=== PATIENT | female | born 1990 | race Caucasian/White ===

== ENCOUNTER 2019-11-05 07:04 | Outpatient (CLI) | payer BC, SELFPAY ==
[2019-11-05 07:52] LABS: Hematocrit 39.9 % (37.0-47.0); Hemoglobin 13.1 g/dL (12.0-15.0)
== END 2019-11-05 07:05 | disposition home or self-care (01) ==
LOC: ANHLAB 07:08
PROVIDERS: Visit Provider Obstetrics & Gynecology
DX: Z01.818 Encounter for other preprocedural examination (principal); N92.6 Irregular menstruation, unspecified
CPT/HCPCS: 36415; 85014; 85018

== ENCOUNTER 2019-11-11 00:07 | Outpatient (CLI) | payer BC, SELFPAY ==
[2019-11-11 19:22] LABS: SARS-CoV-2 RNA PCR Negative
== END 2019-11-11 00:08 | disposition home or self-care (01) ==
LOC: ANHCOVIDDT 00:07
PROVIDERS: Visit Provider Obstetrics & Gynecology
DX: Z01.818 Encounter for other preprocedural examination (principal); Z11.59 Encounter for screening for other viral diseases
CPT/HCPCS: 87635; C9803; U0003

== ENCOUNTER 2019-11-14 01:57 | Day surgery (SDC) | payer BC, SELFPAY ==
[2019-11-03 15:37] VITALS: BMI 30.9
--- NOTE | 2019-11-09 08:04 | P.HP_ITS ---
H&P: HPI History of Present Illness Chief complaint: Irregular Bleeding Narrative: Chava Ochoa is a 29 year old female is admitted for hysteroscopy dilatation curettage. She has been bleeding for 2 and half months with continuous spotting bleeding. She had negative STD testing and hormones have been unsuccessful. Risks and benefits were reviewed in great detail. She read the [employer] handout entitled hysteroscopy, and dilatation curettage respectively. She had all questions answered. She asked to proceed Review of Systems Review of Systems: All systems reviewed & are unremarkable except as noted in HPI and below PMFSH Social History Social History Years smoked: 4 Smoking status: Former smoker Tobacco type: cigarettes Additional smoking assessment comments: QUIT 09/2019 Alcohol intake: current Drinks per week: 1 Spiritual care concerns: No Meds Home Medications and Allergies Home Medications Medication Instructions Recorded Confirmed Type naproxen sodium [Aleve] 220 mg PO DIRECTED PRN 11/03/19 11/03/19 History Allergies Allergy/AdvReac Type Severity Reaction Status Date / Time penicillin G Allergy Severe DIFFICULTY Verified 11/03/19 15:39 BREATHING, TONGUE SWELLING SHELLFISH Allergy Unknown HIVES, Uncoded 11/03/19 15:39 ITCHING Exam Const: General: no acute distress Eyes: General: appearance normal, both eyes and all related structures Neck: Neck: supple and no JVD Thyroid: thyroid normal Resp: Effort & Inspection: normal respiratory effort Auscultation: clear to auscultation bilaterally Cardio: Rate: regular rate Rhythm: regular rhythm GI: Inspection: non-distended GI Palp: Yes Soft to palpation, No Tenderness to palpation present (GI) and No Guarding due to palpation present (GI) A uscultation: normal bowel sounds : General: Yes bladder normal to palpation External Female Exam: normal external appearance Speculum Exam - Vagina: normal vaginal discharge and No vaginal bleeding Speculum Exam - Cervix: nontender Bimanual exam- vagina & uterus: bladder normal to palpation and No Cervical tenderness present OB/external & speculum: No vaginal bleeding Skin: General skin exam: no rashes or lesions noted Extrem: General: normal to inspection and no edema Psych: Mental Status: mental status grossly normal Affect: normal affect Assessment and Plan Additional Plan impression: Bleeding refractory to medical therapy Plan: Hysteroscopy, dilatation curettage
--- NOTE | 2019-11-14 06:38 | WPDHPUPDATE1 ---
History and Physical Update Update Date/Time: 11/14/19 06:38 History and Physical has been reviewed, including an updated exam of the patient. There are NO changes in the patient's condition. Risks, benefits, and alternatives have been discussed and questions answered. Patient agrees to proceed with procedure.
--- NOTE | 2019-11-14 06:39 | WPDHPUPDATE1 ---
History and Physical Update Update Date/Time: 11/14/19 06:39 History and Physical has been reviewed, including an updated exam of the patient. There are NO changes in the patient's condition. Risks, benefits, and alternatives have been discussed and questions answered. Patient agrees to proceed with procedure.
[2019-11-14 07:10] VITALS: BP 115/66; PULSE 70; RESP 20; TEMP 36.2; O2SAT 100
--- NOTE | 2019-11-14 07:20 | P.PNAN_ITS ---
Anes - Initial Pre Proc Eval Procedure: Operation Date: 11/14/19 09:00 Proposed Procedures p Hysteroscopy, Dilation and Curettage - Hood Franks MD Date/Time: 11/14/19 07:20 Surgeon: Hood Franks MD Pre Op Diagnosis: Irregular Bleeding Patient Data Age: 29 Gender: F Height: 1.63 m Weight: 81.65 kg Allergies Allergy/AdvReac Type Severity Reaction Status Date / Time penicillin G Allergy Severe DIFFICULTY Verified 11/03/19 15:39 BREATHING, TONGUE SWELLING SHELLFISH Allergy Unknown HIVES, Uncoded 11/03/19 15:39 ITCHING Home Medications Medication Instructions Recorded Confirmed Type naproxen sodium [Aleve] 220 mg PO DIRECTED PRN 11/03/19 11/03/19 History hydrocodone-acetaminophen [[place]] 1 tablet PO Q4H PRN #20 tablet 11/14/19 Rx Patient hx anesthesia problems: none Family hx anesthesia problems: none PMFSH Past Medical History Medical History (Updated 11/14/19 @ 07:22 by Gregorio Ambriz MD) Anemia Asthma IBS (irritable bowel syndrome) Obesity Social History Social History Years smoked: 4 Smoking status: Former smoker Tobacco type: cigarettes Additional smoking assessment comments: QUIT 09/2019 Alcohol intake: current Drinks per week: 1 Spiritual care concerns: No Anes - Eval Final PreProcedure Day of Procedure 11/14/19 07:20 Patient weight: obese Heart: regular rate and rhythm Lungs: clear to auscultation and normal air movement Airway: Mallampati scale class II Neurological: alert and oriented Last oral intake: >/= 8 hours ASA classification: II Emergent: no Anesthetic plan: proceed Anesthesia type and monitoring: general GIVS and LMA Informed Consent: The patient's anesthetic plan and its attendant risks and benefits were discussed with the patient/family/POA. Questions were solicited and answers provided to the satisfaction of the patient/family/POA.
[2019-11-14] MEDS: ACETAMINOPHEN 500 MG TABLET 1000 MG PO (07:45)
--- NOTE | 2019-11-14 09:03 | PM.PROC ---
Procedure Note - Detailed Date of procedure: 11/14/19 Pre-op diagnosis: Irregular Bleeding Surgeon: Hood Franks MD Postop diagnosis: Irregular bleeding Procedure: Hysteroscopy/dilatation and curettage EBL: 5Cc Anesthesia: IV sedation and local Complications: None Findings: Uterus is sounded to 8cm. Thick irregular endometrial tissue. Normal-appearing fallopian os T bilaterally Description of procedure: The patient was prepped and draped in the normal sterile fashion and placed in the dorsal lithotomy position. Under excellent IV sedation weighted speculum was placed in posterior fornix of vagina. Anterior lip of the cervix was grasped with a single-tooth tenaculum and 2.5cc of 1% xylocaine anesthesia placed at 2, 4, 8, 10:00 a.m. in the cervix. Uterus sounded 8cm. Serial dilatation with fragmented dilators performed. This was followed by passage of the 5mm visualizing hysteroscope using normal saline as visualizing medium. Clots and irregular tissue were seen but no evidence of polyp or other pathologic findings. The uterus was scraped over the entire 360? until a good grating sound was heard. The instruments removed all were accounted for. All sponge, needle, instrument counts were correct. Patient was awakened and went to recovery in satisfactory condition. There were no immediate complications
[2019-11-14] MEDS: LACTATED RINGERS 1,000 ML 30 ML IV CONT (09:06)
[2019-11-14 09:10] VITALS: BP 110/60; PULSE 61; RESP 10; O2SAT 94
[2019-11-14 09:30] VITALS: BP 125/70; PULSE 60; RESP 12; O2SAT 99
== END 2019-11-14 10:20 | disposition home or self-care (01) ==
PROVIDERS: Visit Provider Obstetrics & Gynecology
PROC: 0U5B8ZZ Destruction of Endometrium, Via Natural or Artificial Opening Endoscopic (ICD-10-PCS; CPT 58563; principal; 2019-11-14 09:00)
DX: N92.6 Irregular menstruation, unspecified (principal); N85.8 Other specified noninflammatory disorders of uterus; D64.9 Anemia, unspecified; E66.9 Obesity, unspecified; Z68.30 Body mass index [BMI] 30.0-30.9, adult; J45.909 Unspecified asthma, uncomplicated; Z87.891 Personal history of nicotine dependence; Z88.0 Allergy status to penicillin; Z79.891 Long term (current) use of opiate analgesic
CPT/HCPCS: 58558; 88305; A9270; J1885; J2250; J2704; J3010; J7030; J7120

== ENCOUNTER 2021-09-05 18:45 | Emergency (ER) | payer BC, SELFPAY ==
--- NOTE | 2021-09-05 18:50 | ED.EAR ---
HPI - Ear Problem General Chief complaint: Ear Stated complaint: Bilateral Ear Irritation Time Seen by Provider: 09/05/21 18:50 Source: patient, RN notes reviewed and old records reviewed Mode of arrival: ambulatory Limitations: no limitations History of Present Illness HPI Narrative: 31-year-old female presents to [facility] with complaints of bilateral ear pain, tinnitus, decreased hearing since Thursday. Thursday she had 101 fever, no fever since. Denies any chest pain or shortness of breath. MD Complaint: ear pain Severity: mild Discharge from ear: Reports no Associated symptoms ear: decreased hearing and tinnitus Related Data Home Medications Medication Instructions Recorded Confirmed cetirizine [Zyrtec] 10 mg PO DAILY 09/05/21 09/05/21 levonorgestrel [Mirena] See Rx Instructions .ROUTE .COMPLEX 09/05/21 09/05/21 Allergies Allergy/AdvReac Type Severity Reaction Status Date / Time iodine Allergy Severe Hives Verified 09/05/21 18:49 penicillin G Allergy Severe DIFFICULTY Verified 09/05/21 18:49 BREATHING, TONGUE SWELLING Review of Systems Review of Systems: All systems reviewed & are unremarkable except as noted in HPI and below Constitutional: Constitutional: Reports no additional constitutional complaints, Denies chills and Denies fever(s) Eyes: Eyes: Reports no additional eye complaints ENT: Reports as per HPI, Denies change in voice, Denies dental pain, Denies vertigo, Denies dizziness, Denies ear discharge, Denies headache(s), Denies throat swelling and Reports other Comments: Ear pain, bilateral, decreased hearing, tinnitus Cardiovascular: Cardiovascular: Reports no additional cardiovascular complaints, Denies chest pain and Denies dyspnea Respiratory: Respiratory: Reports no additional respiratory complaints, Denies cough and Denies dyspnea Gastrointestinal: Gastrointestinal: Reports no additional gastrointestinal complaints, Denies abdominal pain, Denies nausea and Denies vomiting Musculoskeletal: Musculoskeletal: Reports no additional musculoskeletal complaints Integumentary/Breasts: Skin/Breast: Reports system reviewed and no additional complaints, except as docu Neurologic: Reports system reviewed and no additional complaints, except as documented, Denies vertigo and Denies dizziness Psychiatric: Psychiatric: Reports no additional psychiatric complaints Allergic/Immunologic: Allergic/Immunologic: Reports no additional allergic/immunologic complaints and Denies throat swelling PMFSH Past Medical History Medical History (Updated 09/05/21 @ 19:37 by Manasa Garces APRN) Anemia Asthma IBS (irritable bowel syndrome) Obesity Social History Social History Years smoked: 4 Smoking status: Former smoker Tobacco type: cigarettes Additional smoking assessment comments: QUIT 09/2019 Alcohol intake: current Drinks per week: 1 Spiritual care concerns: No Comments At the time of my signature, I reviewed and agree with the nursing past medical, surgical, social, and family history. There is no relevant family history pertinent to the patient complaint. Exam Const: General: healthy appearing and no acute distress Nutritional Appearance: well nourished Orientation/consciousness: patient oriented x3 Limitations: no limitations HENMT: Head: normal to inspection Ears: external ears normal, TM normal on the left, EAC's normal, no periauricular adenopathy and TM abnormal bulging on the right, erythematous on the right and with loss of landmarks on the right General nose exam: Normal external nose present and Normal nasal mucous membranes and turbinates present Face and sinus: normal facial exam Mouth: Yes Normal oral and palatal mucosa present Throat: posterior oropharynx normal, tonsils normal and uvula midline Eyes: Conjunctivae: conjunctivae normal Pupils: Equal, round and reactive pupils present Neck: Neck: normal
[2021-09-05 18:56] VITALS: BP 113/77; PULSE 64; RESP 18; TEMP 36.4; O2SAT 100
== END 2021-09-05 19:07 | disposition home or self-care (01) ==
PROVIDERS: Emergency Provider Nurse Practitioner
DX: H66.91 Otitis media, unspecified, right ear (principal); J45.909 Unspecified asthma, uncomplicated; E66.9 Obesity, unspecified; Z68.27 Body mass index [BMI] 27.0-27.9, adult; Z87.891 Personal history of nicotine dependence
CPT/HCPCS: 99213; G0463

== ENCOUNTER 2021-09-11 17:21 | Emergency (ER) | payer BC, SELFPAY ==
[2021-09-11 17:29] VITALS: BP 129/80; PULSE 72; RESP 18; TEMP 36.4; O2SAT 100
--- NOTE | 2021-09-11 18:23 | ED.EAR ---
HPI - Ear Problem General Chief complaint: Ear Stated complaint: bilateral ear pain Time Seen by Provider: 09/11/21 18:24 Source: patient, RN notes reviewed and old records reviewed Mode of arrival: ambulatory Limitations: no limitations History of Present Illness HPI Narrative: 31-year-old female who presents to [facility] with complaints of bilateral ear pain with inability to hear and feelings of fluid in her ears. Patient states that she was diagnosed with an ear infection last week and started a Z-pack on the 12th and she completed. Patient reports that she feels that her symptoms have worsened. Patient reports that her left ear pain is 4/10, right ear pain 5/10 with pressure and she can't hear.She denies any fevers, chills or sweats or body aches, denies any cough or nasal drainage. MD Complaint: ear pain Location: bilateral Related Data Home Medications Medication Instructions Recorded Confirmed cetirizine [Zyrtec] 10 mg PO DAILY 09/11/21 09/11/21 levonorgestrel [Mirena] 1 device INTRAUTERINE ONCE 09/11/21 09/11/21 Allergies Allergy/AdvReac Type Severity Reaction Status Date / Time iodine Allergy Severe Hives Verified 09/05/21 18:49 penicillin G Allergy Severe DIFFICULTY Verified 09/05/21 18:49 BREATHING, TONGUE SWELLING shellfish derived Allergy Hives Verified 09/11/21 17:50 Review of Systems Review of Systems: CONSTITUTIONAL: Denies fever, chills, or sweats. EYES: Denies visual changes, redness, or discharge. ENT: Denies rhinorrhea, congestion, sore throat,positive for otalgia, decreased hearing bilaterally CARDIOVASCULAR: Denies chest pain, palpitations, or edema. RESPIRATORY: Denies cough or dyspnea. GASTROINTESTINAL: Denies abdominal pain, nausea, vomiting, or diarrhea. GENITOURINARY: Denies dysuria or hematuria. SKIN: Denies rash or itching. MUSCULOSKELETAL: Denies back pain, joint pain, or myalgia. NEUROLOGIC: Denies headache, numbness, or weakness. PSYCHIATRIC: Denies anxiety or depression. All systems reviewed & are unremarkable except as noted in HPI and below PMFSH Past Medical History Medical History (Updated 09/12/21 @ 00:00 by Silvestre Mccarthy) Anemia Asthma IBS (irritable bowel syndrome) Obesity Surgical History Surgical History (Updated 09/12/21 @ 07:48 by Kelsie Delgado NP) History of removal of ovarian cyst Hx of cholecystectomy Previous section Pillow teeth extracted Social History Social History Years smoked: 4 Smoking status: Former smoker Tobacco type: cigarettes Additional smoking assessment comments: QUIT 09/2019 Alcohol intake: current Drinks per week: 1 Spiritual care concerns: No Comments At time of signature, agree with nursing past medical, surgical, social and family history. There is no relevant family history pertinent to the presenting complaint Exam Narrative: GENERAL: Well-appearing, well-nourished, and in no acute distress. HEAD: Normocephalic, atraumatic. EYES: PERRLA and EOMI. ENT: Nares clear, no rhinorrhea or epistaxis. Mucous membranes moist.Bilateral TM's dull with fluid noted, ear canals without drainage or irritation, throat pink with no lesions or exudates or tonsil enlargement NECK: Supple.no lymphadenopathy CHEST: Clear to auscultation. No respiratory distress. no cough SAO2 100% on room air HEART: Regular rate and rhythm. No murmur heard. Normal peripheral pulses. ABDOMEN: Soft, nontender, nondistended, normal active bowel sounds. EXTREMITIES: Normal range of motion. No edema. SKIN: Warm, dry, no rash. NEURO: No focal deficits. Alert and oriented x3. Course Course Level of Care: Express Care Visit Vital Signs Vital signs: Vital Signs Temperature 36.4 C 09/11/21 17:29 Pulse Rate 72 09/11/21 17:29 Respiratory Rate 18 09/11/21 17:29 Blood Pressure 129/80 09/11/21 17:29 Pulse Oximetry 100 09/11/21 17:29 Temperature 36.4
== END 2021-09-11 18:50 | disposition home or self-care (01) ==
PROVIDERS: Emergency Provider Registered Nurse
DX: H69.93 Unspecified Eustachian tube disorder, bilateral (principal); Z87.891 Personal history of nicotine dependence; J45.909 Unspecified asthma, uncomplicated; E66.9 Obesity, unspecified; Z68.27 Body mass index [BMI] 27.0-27.9, adult
CPT/HCPCS: 99213; G0463